=== PATIENT | female | born 1955 | race African-American/Black ===

== ENCOUNTER 2018-05-04 16:51 | Emergency (ER) | payer SELFPAY ==
[~2018-05-04] VITALS: Ht 167.6 cm; Wt 113.6 kg
[2018-05-04] MEDS ORDERED: DEXTROSE 5%-WATER 500 ML BAG IV ONE (16:52)
[2018-05-04] MEDS ORDERED: AMIODARONE HCL 50 MG/ML 3 ML VIAL IVP ONE (16:52)
[2018-05-04] MEDS ORDERED: SODIUM BICARBONATE [ADULT] 8.4% 50 MEQ/50 ML SYRINGE IVP ONE (16:52)
[2018-05-04] MEDS ORDERED: DOPamine HCL/D5W 400 MG/250 ML IV BAG IV ONE (16:52)
[2018-05-04] MEDS ORDERED: CALCIUM GLUCONATE 100 MG/ML 10 ML IVP ONE (16:52)
[2018-05-04] MEDS ORDERED: DEXTROSE 50%-WATER 25 GM/50 ML SYRINGE IVP ONE (16:52)
[2018-05-04] MEDS ORDERED: ATROPINE SULFATE 0.1 MG/ML 10 ML SYRINGE IVP ONE (16:52)
[2018-05-04] MEDS ORDERED: D5W IV ONE (16:52)
[2018-05-04] MEDS ORDERED: LIDOCAINE HCL IV ONE (16:52)
[2018-05-04] MEDS ORDERED: EPINEPHrine 1:10,000 [1 MG/10 ML] SYRINGE IVP ONE (16:52)
[2018-05-04] MEDS ORDERED: PHENYLEPHRINE 200 MG/D5%-WATER 250 ML IV PRN (17:30)
[2018-05-04 17:48] VITALS: BP 0/0
== END 2018-05-04 22:43 | disposition expired ==
LOC: EMS 16:51
DX: I46.9 Cardiac arrest, cause unspecified (principal)
CPT/HCPCS: 31500; 92950; 99285; 99291; J0171; J0282; J0461; J0610; J1265; J2001; J2370; J3490; J7060